=== PATIENT | female | born 1960 | race Caucasian/White ===

== ENCOUNTER → 2024-04-08 06:18 | Outpatient (REF) | payer MEDICARE, OTHER, SELFPAY ==
[2024-04-08 07:10] LABS: % Basophils 0.4 % (0-2); % Immature Granulocytes 0.6 % (0-0.5); % Lymphocytes 42.6 % (20.5-51.1); % Monocytes 7.6 % (1.7-9.3); % Neutrophils 48.8 % (42.2-75.2); Absolute Lymphocytes 2.2 10^3/uL (1.2-3.4); Absolute Monocytes 0.4 10^3/uL (0.1-0.6); Absolute Neutrophils 2.5 10^3/uL (1.4-6.5); Hematocrit 42.8 % (37.0-47.0); Hemoglobin 14.6 g/dL (12.0-16.0); Mean Corp Hgb Conc. 34.1 g/dL (33.0-37.0); Mean Corpuscular Hgb 29.8 pg (27.0-31.0); Mean Corpuscular Volume 87.3 fL (81.0-99.0); Mean Platelet Volume 10.9 fL (7.4-10.4); Nucleated Red Blood Cells % 0 %; Platelet Count 187 10^3/uL (130-400); White Blood Cell Count 5.1 10^3/uL (4.8-10.8)
[2024-04-08 08:05] LABS: ALT (SGPT) 28 U/L (0-35); AST (SGOT) 26 U/L (14-36); Albumin 4.5 g/dl (3.5-5.0); Alkaline Phosphatase 65 U/L (38-126); Blood Urea Nitrogen 17 mg/dl (7-17); Calcium 9.8 mg/dl (8.4-10.2); Carbon Dioxide 24 mmol/L (22-30); Chloride 105 mmol/L (98-107); Glucose 96 mg/dl (70-99); HDL Cholesterol 72 mg/dl; LDL Cholesterol, Calculated 176 mg/dl; Potassium 4.5 mmol/L (3.5-5.1); Sodium 143 mmol/L (135-145); Total Bilirubin 0.9 mg/dl (0.2-1.3); Total Cholesterol 271 mg/dl (50-199); Total Protein 7.4 g/dl (6.3-8.2); Triglyceride 118 mg/dl (10-149); Very Low Density Lipoprotein 23 mg/dl (0-30); eGFR > 60.00
[2024-04-08 08:30] LABS: TSH 2.99 uIU/ml (0.47-4.68)
[2024-04-08 09:03] LABS: Glycohemoglobin (HgbA1c) 5.2 % (4.0-5.6)
== END ==
LOC: RAD 06:18
PROVIDERS: ATTENDING PHYSICIAN Physician Assistant Medical; REFERRING PHYSICIAN Obstetrics & Gynecology Gynecology
DX: Z76.89 Persons encountering health services in other specified circumstances (principal); Z87.39 Personal history of other diseases of the musculoskeletal system and connective tissue; Z86.39 Personal history of other endocrine, nutritional and metabolic disease; N95.9 Unspecified menopausal and perimenopausal disorder; Z85.820 Personal history of malignant melanoma of skin
CPT/HCPCS: 36415; 77080; 80053; 80061; 83036; 84443; 85025

== ENCOUNTER → 2024-04-29 13:43 | Outpatient (REF) | payer MEDICARE, OTHER, SELFPAY | LOC: WDC 13:43 | PROVIDERS: ATTENDING PHYSICIAN Obstetrics & Gynecology Gynecology; FAMILY PHYSICIAN Physician Assistant Medical | DX: Z12.31 Encounter for screening mammogram for malignant neoplasm of breast (principal) | CPT/HCPCS: 77063; 77067 ==

== ENCOUNTER → 2024-05-30 06:27 | Day surgery (SDC) | payer MEDICARE, OTHER, SELFPAY | LOC: GI 06:27 | PROVIDERS: ATTENDING PHYSICIAN Student in an Organized Health Care Education/Training Program | DX: Z12.11 Encounter for screening for malignant neoplasm of colon (principal); K64.0 First degree hemorrhoids; Q43.8 Other specified congenital malformations of intestine | CPT/HCPCS: G0121 ==

== ENCOUNTER → 2024-07-25 14:13 | Outpatient (REF) | payer MEDICARE, OTHER, SELFPAY | LOC: DHSLP 14:13 | PROVIDERS: ATTENDING PHYSICIAN Internal Medicine Critical Care Medicine; FAMILY PHYSICIAN Physician Assistant Medical | DX: G47.33 Obstructive sleep apnea (adult) (pediatric) (principal) | CPT/HCPCS: 95800 ==

== ENCOUNTER → 2024-10-04 06:25 | Outpatient (REF) | payer MEDICARE, OTHER, SELFPAY ==
[2024-10-04 07:18] LABS: ALT (SGPT) 25 U/L (0-35); AST (SGOT) 22 U/L (14-36); Albumin 4.5 g/dl (3.5-5.0); Alkaline Phosphatase 80 U/L (38-126); Blood Urea Nitrogen 21 mg/dl (7-17); Calcium 9.9 mg/dl (8.4-10.2); Carbon Dioxide 27 mmol/L (22-30); Chloride 105 mmol/L (98-107); Glucose 94 mg/dl (70-99); HDL Cholesterol 64 mg/dl; LDL Cholesterol, Calculated 153 mg/dl; Potassium 4.3 mmol/L (3.5-5.1); Sodium 140 mmol/L (135-145); Total Bilirubin 0.9 mg/dl (0.2-1.3); Total Cholesterol 243 mg/dl (50-199); Total Protein 7.6 g/dl (6.3-8.2); Triglyceride 130 mg/dl (10-149); Very Low Density Lipoprotein 26 mg/dl (0-30); eGFR > 60.00
== END ==
LOC: RAD 06:25
PROVIDERS: ATTENDING PHYSICIAN Physician Assistant Medical
DX: Z87.891 Personal history of nicotine dependence (principal); E78.2 Mixed hyperlipidemia
CPT/HCPCS: 36415; 76770; 80053; 80061

== ENCOUNTER → 2024-11-29 06:34 | Outpatient (REF) | payer MEDICARE, OTHER, SELFPAY ==
[2024-11-29 07:52] LABS: % Basophils 0.7 % (0-2); % Immature Granulocytes 0.2 % (0-0.5); % Lymphocytes 48.4 % (20.5-51.1); % Neutrophils 42.7 % (42.2-75.2); Absolute Lymphocytes 2.1 10^3/uL (1.2-3.4); Absolute Monocytes 0.3 10^3/uL (0.1-0.6); Absolute Neutrophils 1.8 10^3/uL (1.4-6.5); Hematocrit 40.7 % (37.0-47.0); Hemoglobin 14.2 g/dL (12.0-16.0); Mean Corp Hgb Conc. 34.9 g/dL (33.0-37.0); Mean Corpuscular Hgb 29.6 pg (27.0-31.0); Mean Platelet Volume 11.3 fL (7.4-10.4); Nucleated Red Blood Cells % 0 %; Platelet Count 158 10^3/uL (130-400); Red Blood Cell Count 4.79 10^6/uL (4.20-5.40); Red Cell Dist. Width 12.9 % (11.5-14.5); White Blood Cell Count 4.3 10^3/uL (4.8-10.8)
[2024-11-29 08:17] LABS: ALT (SGPT) 26 U/L (0-35); AST (SGOT) 23 U/L (14-36); Albumin 4.1 g/dl (3.5-5.0); Alkaline Phosphatase 69 U/L (38-126); Blood Urea Nitrogen 17 mg/dl (7-17); Calcium 9.8 mg/dl (8.4-10.2); Carbon Dioxide 28 mmol/L (22-30); Chloride 109 mmol/L (98-107); Glucose 92 mg/dl (70-99); Magnesium 1.8 mg/dl (1.6-2.3); Potassium 4.2 mmol/L (3.5-5.1); Sodium 141 mmol/L (135-145); Total Bilirubin 0.9 mg/dl (0.2-1.3); Total Protein 7.3 g/dl (6.3-8.2); Uric Acid 3.9 mg/dl (2.5-6.2); eGFR > 60.00
[2024-11-29 08:28] LABS: Vitamin D, 25-OH*** 43.1 ng/mL (30-80)
[2024-11-29 08:42] LABS: TSH Reflex To Free T4 2.16 uIU/ml (0.47-4.68)
[2024-11-29 09:01] LABS: Vitamin B12 708 pg/ml (239-931)
[2024-11-29 09:33] LABS: Glycohemoglobin (HgbA1c) 5.3 % (4.0-5.6)
[2024-12-01 09:41] LABS: Lipoprotein a (Lp a) 180 mg/dL (<=29)
== END ==
LOC: RAD 06:34
PROVIDERS: ATTENDING PHYSICIAN Nurse Practitioner; FAMILY PHYSICIAN Physician Assistant Medical
DX: E66.09 Other obesity due to excess calories (principal); Z87.891 Personal history of nicotine dependence; G47.33 Obstructive sleep apnea (adult) (pediatric); E05.00 Thyrotoxicosis with diffuse goiter without thyrotoxic crisis or storm; M85.80 Other specified disorders of bone density and structure, unspecified site; E78.2 Mixed hyperlipidemia; Z13.1 Encounter for screening for diabetes mellitus; R20.0 Anesthesia of skin; Z79.899 Other long term (current) drug therapy
CPT/HCPCS: 36415; 80053; 80061; 82306; 82607; 83036; 83695; 83704; 83735; 84443; 84550; 85025

== ENCOUNTER → 2024-12-30 10:46 | Outpatient (REF) | payer MEDICARE, OTHER, SELFPAY | LOC: RAD 10:46 | PROVIDERS: ATTENDING PHYSICIAN Physician Assistant Medical | DX: R07.82 Intercostal pain (principal); R07.81 Pleurodynia | CPT/HCPCS: 71101 ==

== ENCOUNTER → 2025-03-29 08:45 | Outpatient (REF) | payer MEDICARE, SELFPAY | LOC: REG 08:45 | PROVIDERS: ATTENDING PHYSICIAN Physician Assistant Medical | DX: R52 Pain, unspecified (principal) | CPT/HCPCS: 36415; 82550 ==

== ENCOUNTER → 2025-04-14 12:00 | Outpatient (REF) | payer MEDICARE, SELFPAY | LOC: DHSLP 12:00 | PROVIDERS: ATTENDING PHYSICIAN Internal Medicine Critical Care Medicine; FAMILY PHYSICIAN Physician Assistant Medical | DX: G47.33 Obstructive sleep apnea (adult) (pediatric) (principal) | CPT/HCPCS: 95800 ==

== ENCOUNTER → 2025-05-03 07:44 | Outpatient (REF) | payer MEDICARE, OTHER, SELFPAY ==
[2025-05-03 09:07] LABS: Hematocrit 45.0 % (37.0-47.0); Hemoglobin 15.3 g/dL (12.0-16.0); Mean Corp Hgb Conc. 34.0 g/dL (33.0-37.0); Mean Corpuscular Volume 88.8 fL (81.0-99.0); Nucleated Red Blood Cells % 0 %; Platelet Count 171 10^3/uL (130-400); Red Cell Dist. Width 13.2 % (11.5-14.5)
[2025-05-03 09:36] LABS: ALT (SGPT) 26 U/L (0-35); AST (SGOT) 23 U/L (14-36); Albumin 4.6 g/dl (3.5-5.0); Alkaline Phosphatase 61 U/L (38-126); Blood Urea Nitrogen 23 mg/dl (7-17); Calcium 9.6 mg/dl (8.4-10.2); Carbon Dioxide 26 mmol/L (22-30); Chloride 105 mmol/L (98-107); Glucose 92 mg/dl (70-99); HDL Cholesterol 73 mg/dl; LDL Cholesterol, Calculated 113 mg/dl; Magnesium 1.9 mg/dl (1.6-2.3); Potassium 4.3 mmol/L (3.5-5.1); Sodium 138 mmol/L (135-145); Total Protein 7.7 g/dl (6.3-8.2); Very Low Density Lipoprotein 13 mg/dl (0-30); eGFR > 60.00
[2025-05-03 09:59] LABS: TSH 1.97 uIU/ml (0.47-4.68)
[2025-05-03 10:01] LABS: Uric Acid 3.3 mg/dl (2.5-6.2)
== END ==
LOC: REG 07:44
PROVIDERS: ATTENDING PHYSICIAN Internal Medicine; FAMILY PHYSICIAN Physician Assistant Medical
DX: E78.2 Mixed hyperlipidemia (principal); G47.33 Obstructive sleep apnea (adult) (pediatric); E78.41 Elevated Lipoprotein(a); E66.09 Other obesity due to excess calories; E05.00 Thyrotoxicosis with diffuse goiter without thyrotoxic crisis or storm; M85.80 Other specified disorders of bone density and structure, unspecified site
CPT/HCPCS: 36415; 80053; 80061; 83735; 84439; 84443; 84550; 85025

== ENCOUNTER → 2025-05-04 10:56 | Outpatient (REF) | payer MEDICARE, OTHER, SELFPAY | LOC: WDC 10:56 | PROVIDERS: ATTENDING PHYSICIAN Obstetrics & Gynecology Gynecology; FAMILY PHYSICIAN Physician Assistant Medical | DX: Z12.31 Encounter for screening mammogram for malignant neoplasm of breast (principal) | CPT/HCPCS: 77063; 77067 ==